=== PATIENT | male | born 1995 | race Caucasian/White ===

== ENCOUNTER 2017-11-13 18:37 | Emergency (ER) | payer OTHER ==
--- NOTE | 2017-11-13 18:56 | ED PSYCHIATRIC COMPLAINT ---
History of Present Illness General Chief Complaint: General Adult Stated Complaint: BIBA FOR HAND/ARM CRAMPING/ANXIETY Source: patient, old records, EMS Exam Limitations: no limitations Vital Signs & Intake/Output Vital Signs & Intake/Output Vital Signs Date Time Temp Pulse Resp B/P B/P Pulse O2 O2 Flow FiO2 Mean Ox Delivery Rate 11/13 1844 97.6 104 16 131/64 100 Room Air Triage Note: PT CALLED 911 FOR C/O ANXIETY, BILATERAL HAND CRAMPING. REPORTS HX OF SOCIAL ANXIETY DISORDER, WAS AT A [employer] AND BEGAN HYPERVENTILAING. TACHYPNIC 30S-40S FOR EMS ARRIVAL. DENIES CP OR DIZZINESS. REPORTS FELT LIKE HE WAS GOING TO PASS OUT. DID NOT LOSE CONSCIOUSNESS PER EMS. Triage Nurses Notes Reviewed? yes HPI: Patient suffers from severe social anxiety. Patient used to see a therapist but does not see anybody any more. Patient is not on any medications and he is reluctant to be on long-term medications. Patient was at a [employer] today when he became very anxious. He decided to leave. As he was driving home his hands and feet cramped up and oriented spasms. Patient was afraid that he was going to lose control of his car so he pulled over and then called for the ambulance. Patient denies any chest pain or palpitations. Patient denies any lightheadedness. He states that he is beginning to feel little bit better. Past History Travel History Traveled to [place] past 21 day No Medical History Any Pertinent Medical History? see below for history Cardiovascular: PALPITATIONS Psychiatric: anxiety Surgical History Surgical History: non-contributory Psychosocial History What is your primary language Ken[place] Tobacco Use: Never used ETOH Use: denies use Illicit Drug Use: denies illicit drug use Family History Hx Contributory? No Review of Systems Review of Systems Constitutional: Reports: no symptoms. EENTM: Reports: no symptoms. Respiratory: Reports: no symptoms. Cardiovascular: Reports: no symptoms. GI: Reports: no symptoms. Musculoskeletal: Reports: see HPI. Neurological/Psychological: Reports: see HPI, anxiety. Immunologic/Allergic: Reports: no symptoms. Physical Exam Physical Exam General Appearance: well developed/nourished, alert, awake, anxious, moderate distress Head: atraumatic, normal appearance Eyes: Bilateral: PERRL, EOMI. Ears, Nose, Throat: normal pharynx, normal ENT inspection, hearing grossly normal Neck: normal inspection, supple, full range of motion Respiratory: normal breath sounds, chest non-tender, no respiratory distress, lungs clear Cardiovascular: regular rate/rhythm, normal peripheral pulses Gastrointestinal: normal bowel sounds, soft, non-tender, no organomegaly Extremities: normal range of motion Neurological/Psychiatric: no motor/sensory deficits, awake, alert, anxious, oriented x 3 Appearance/Memory/Insight: appropriate appearance, appropriate insight Behavoir/Eye Contact/Speech: cooperative, normal speech, good eye contact Thoughts/Hallucinations: normal thought pattern, no apparent hallucination SAD PERSONS Done? patient not suicidal Progress Differential Diagnosis: SOCIAL ANXIETY Plan of Care: Laboratory Tests 11/13/171854: Serum Alcohol Cancelled 11/13/171854: CBC w Diff Cancelled, WBC Cancelled, RBC Cancelled, Hgb Cancelled, Hct Cancelled , MCV Cancelled, MCH Cancelled, MCHC Cancelled, RDW Cancelled, Plt Count Cancelled, MPV Cancelled, Methadone Screen Cancelled, Barbiturate Screen Cancelled, Ur Phencyclidine Scrn Cancelled, Amphetamines Screen Cancelled, U Benzodiazepines Scrn Cancelled, Urine Cocaine Screen Cancelled, Urine Cannabis Screen Cancelled Departure Departure Disposition: HOME OR SELF CARE Condition: Stable Clinical Impression Primary Impression: Anxiety Additional Instructions: FOLLOW UP WITH YOUR THERAPIST RETURN IF SYMPTOMS WORSEN OR FOR ANY CONCERNS Departure Forms: Customer Survey General Discharge Information
[2017-11-13 20:15] VITALS: BP 122/64
== END 2017-11-13 20:17 ==
LOC: ERH 18:37
DX: F41.9 Anxiety disorder, unspecified (principal)
CPT/HCPCS: 80307; G0480